=== PATIENT | female | born 1995 | race Asian ===

== ENCOUNTER 2019-04-18 01:08 | Inpatient (IN) | payer OTHER ==
--- NOTE | 2019-04-18 01:15 | ED ---
Substance Abuse/Use - HPI Summary HPI Summary: LEVEL 5 CAVEAT: HPI UNOBTAINABLE DUE TO PATIENT UNRESPONSIVE. This patient is a 24 year old female presenting to [facility] with a chief complaint of unresponsiveness secondary to ETOH intoxication. The patient was brought in by private vehicle on responsive and the friend stated she drank too much too fast. - History Of Current Complaint Stated Complaint: ETOH PER FRIEND Hx Obtained From: Other: - Friend Hx From Patient Unobtainable Due To: Altered Mental Status - Allergies/Home Medications Allergies/Adverse Reactions: Allergies Allergy/AdvReac Type Severity Reaction Status Date / Time Unable to Assess Allergy Verified 04/18/19 01:20 Home Medications: Home Medications NK [No Home Medications Reported] 04/18/19 [History Confirmed 04/18/19] PMH/Surg Hx/FS Hx/Imm Hx - Additional Comments History Additional Comments: LEVEL 5 CAVEAT: PMH UNOBTAINABLE DUE TO PATIENT UNRESPONSIVE. Review of Systems - ROS Summary Review of Systems Summary: LEVEL 5 CAVEAT: ROS UNOBTAINABLE DUE TO PATIENT UNRESPONSIVE. Neurological: Other - Unresponsive All Other Systems Reviewed And Are Negative: No Physical Exam - Summary Physical Exam Summary: General: Extremely thin FEMALE. Unresponsive. No response to sternal rub. Respirations 10. HR 60 BPM. Unable to assess Neurological or Psych. HEENT: Normocephalic, Atraumatic. Eyes: Conjuctiva normal, Pupils 3mm bilaterally, sluggish. Ears: TMs within normal limits. Nares: (-) discharge, (-) erythema. Oropharynx: Clear, mucous membranes moist, (-) exudates. Neck: Soft, FROM, (-) lymphadenopathy, (-) thyromegaly, (-) JVD. Cardiovascular: Normal sinus rhythm, (-) murmur. Lungs: Clear to auscultation bilaterally (-) wheezes, (-) rales, (-) rhonchi. Abdomen: Soft, non-tender, non-distended, (-) organomegaly, normal bowel sounds. Back: (-) CVA tenderness Extremities: No edema. Skin: Warm, dry, (-) rash. Neuro: Unable to assess Neurological or Psych. Psychiatric: Unable to assess Neurological or Psych. GCS: 5 1 Eye-opening Response 1 Verbal Response 3 Motor Response Triage Information Reviewed: Yes Vital Signs On Initial Exam: Temp Pulse Resp BP Pulse Ox 96.1 F 105 12 92/51 98 04/18/19 01:25 04/18/19 01:25 04/18/19 01:25 04/18/19 01:25 04/18/19 01:25 Vital Signs Reviewed: Yes Procedures - Sedation Patient Received Moderate/Deep Sedation with Procedure: No - Intubation Time of Intubation: 01:17 Intubation Method: orotracheal Tube Size (cm): 7.0 Medications: Succinylcholine - 60 mg Breath Sounds after Intubation: equal Intubation Complications: vomited - 2nd attempt successful Post Intubation Xray: Yes Progress/Xray Impression: Good placement noted. Diagnostics - Vital Signs Temp Pulse Resp BP Pulse Ox 96.1 F 105 12 92/51 98 04/18/19 01:25 04/18/19 01:25 04/18/19 01:25 04/18/19 01:25 04/18/19 01:25 - Laboratory Result Diagrams: 04/18/19 01:17 04/18/19 01:17 Lab Statement: Any lab studies that have been ordered have been reviewed, and results considered in the medical decision making process. - Radiology CXR Radiology Interpretation Completed By: ED Physician Summary of Radiographic Findings: AT Tube is acceptable in placement. No signs of infiltrate or fluid. Pending official radiologist report. - EKG 0250 Cardiac Rate: Bradycardia - 47 BPM EKG Rhythm: Sinus Rhythm Summary of EKG Findings: No STEMI. ED Physician has reviewed and interpreted this EKG. Re-Evaluation - Re-Evaluation First Eval Re-Evaluation Time: 02:23 Comment: Increased Propofol to 15 mg. Ativan prn. Course/Dx - Course Course Of Treatment: 24-year-old female presents by private vehicle unresponsive. Patient unresponsive to firm sternal rub. Decreased respirations. GCS 5. Patient intubated with succinylcholine. Started on the ventilator. Patient had vomiting 1 at initial intubation. Zofran and fluids given. Blood alcohol returned 399. Patient was sedated with propofol. Referred to hospitalist for admission. - Diagnoses Provider Diagnoses: Unresponsive episode, Acute alcohol intoxication - Critical Care Time Critical Care Time: 75-104 min - 77 mins Discharge ED - Sign-Out/Discharge Documenting (check all that apply): Patient Departure - Admission - Discharge Plan Condition: Stable Disposition: ADMITTED TO [facility] - Billing Disposition and Condition Condition: STABLE Disposition: Admitted to [facility] - Attestation Statements Document Initiated by Jazmineibyong: Yes Documenting Scribe: Louis Franklin Provider For Whom Barrett is Documenting (Include Credential): Bernie Moran MD Scribe Attestation: Louis Durham, scribed for Bernie Moran MD on 04/18/19 at 0621. Scribe Documentation Reviewed: Yes Provider Attestation: The documentation as recorded by the Louis hernandez accurately reflects the service I personally performed and the decisions made by me, Bernie Moran MD Status of Scribe Document: Viewed
[2019-04-18] MEDS ORDERED: Ondansetron INJ* 2 MG/ML VIAL ONE (01:21)
[2019-04-18] MEDS ORDERED: Succinylcholine* 20 MG/ML 10 ML VIAL ONE (01:24)
[2019-04-18] MEDS ORDERED: Naloxone Nasal Spray* 4 MG/0.1 ML NASAL.SPR INTRANASAL PRN (01:30)
[2019-04-18] MEDS ORDERED: Succinylcholine* 20 MG/ML 10 ML VIAL IV ONE (01:31)
[2019-04-18] MEDS ORDERED: Ondansetron INJ* 2 MG/ML VIAL IV ONE (01:31)
[2019-04-18] MEDS ORDERED: NS 0.9% 1000 ML** 1,000 ML IV ONE ×2 (01:32)
[2019-04-18] MEDS ORDERED: Pantoprazole IV* 40 MG IV ONE (01:32)
[2019-04-18] MEDS ORDERED: Propofol* 100 ML IV ONE ×2 (01:37→01:46)
[2019-04-18 01:43] LABS: ABS Basophils 0.1 10^3/ul (0-0.2); ABS Eosinophils 0.1 10^3/ul (0-0.6); ABS Monocytes 0.4 10^3/ul (0-0.8); ABS Neutrophils 3.7 10^3/ul (1.5-7.7); Eosinophil % 0.8 %; Hematocrit 35 % (35-47); Hemoglobin 11.5 g/dL (12.0-16.0); Lymphocyte % 41.4 %; Mean Corpuscular HGB Conc 32 g/dL (31-36); Mean Corpuscular Hemoglobin 27 pg (27-31); Mean Corpuscular Volume 85 fL (80-97); Mean Platelet Volume 7.2 fL (7.4-10.4); Platelet Count 251 10^3/uL (150-450); Red Blood Count 4.19 10^6 /uL (3.70-4.87); Red Cell Distribution Width 15 % (10-15); White Blood Count 7.2 10^3/uL (3.5-10.8)
[2019-04-18 02:02] LABS: ALT 12 U/L (7-52); Albumin 4.2 g/dL (3.2-5.2); Albumin/Globulin Ratio 1.5 (1-3); Alkaline Phosphatase 63 U/L (34-104); BUN/Creatinine Ratio 16.9 (8-20); Blood Urea Nitrogen 11 mg/dL (6-24); CO2 Carbon Dioxide 22 mmol/L (22-32); Chloride 103 mmol/L (101-111); EGFR African American 137.9 (>60); Globulin 2.8 g/dL (2-4); Glucose 124 mg/dL (70-100); Sodium 135 mmol/L (135-145)
[2019-04-18 02:08] LABS: HCG Pregnancy < 0.60 mIU/mL
[2019-04-18 02:17] LABS: Acetaminophen < 15 mcg/mL; Alcohol 399 mg/dL (<10); Salicylate < 2.50 mg/dL (<30)
[2019-04-18 02:31] LABS: TSH (Thyroid Stimulating Horm) 4.59 mcIU/mL (0.34-5.60)
[2019-04-18] MEDS ORDERED: LORazepam INJ* 2 MG/ML 1 ML VIAL IV PUSH ONE (02:31)
[2019-04-18] MEDS ORDERED: Lorazepam PYXIS KEY PRN (02:31)
[2019-04-18 02:55] LABS: AST 20 U/L (13-39); Anion Gap 10 mmol/L (2-11); Potassium 3.4 mmol/L (3.5-5.0)
[2019-04-18 03:16] LABS: Urine Appearance Clear; Urine Bilirubin Negative (Negative); Urine Blood Negative (Negative); Urine Color Straw; Urine Glucose Negative (Negative); Urine Ketones Trace (Negative); Urine Nitrite Negative (Negative); Urine Protein Negative (Negative); Urine Urobilinogen Negative (Negative)
[2019-04-18 03:36] LABS: Urine Benzodiazepine Screen None Detected (None Detect); Urine Opiates Screen None Detected (None Detect)
[2019-04-18] MEDS ORDERED: Thiamine IV 100 MG, Folic Acid IV* 1 MG, Multiple Vitamin IV ADULT* 10 ML in D5NS 0.9% ... IV ONE (04:46)
[2019-04-18] MEDS ORDERED: LORazepam INJ* 2 MG/ML 1 ML VIAL IV PUSH SCH (05:00)
[2019-04-18] MEDS ORDERED: Lactated Ringers 1000 ML Bag* 1,000 ML IV SCH (05:00)
[2019-04-18] MEDS ORDERED: KCL 20 MEQ/100 ML IVPREMIX* 20 MEQ/100 ML BAG IV ONE (05:01)
[2019-04-18] MEDS ORDERED: Propofol* 100 ML IV SCH (06:00)
[2019-04-18 06:45] LABS: ABS Lymphocytes 0.9 10^3/ul (1.0-4.8); ABS Monocytes 0.1 10^3/ul (0-0.8); ABS Neutrophils 5.6 10^3/ul (1.5-7.7); Eosinophil % 0.1 %; Hematocrit 34 % (35-47); Hemoglobin 11.3 g/dL (12.0-16.0); Lymphocyte % 14.1 %; Mean Corpuscular HGB Conc 33 g/dL (31-36); Mean Corpuscular Hemoglobin 28 pg (27-31); Mean Corpuscular Volume 86 fL (80-97); Mean Platelet Volume 7.1 fL (7.4-10.4); Platelet Count 179 10^3/uL (150-450); Red Blood Count 3.99 10^6 /uL (3.70-4.87); Red Cell Distribution Width 15 % (10-15); White Blood Count 6.7 10^3/uL (3.5-10.8)
[2019-04-18 07:00] LABS: Albumin 3.9 g/dL (3.2-5.2); Albumin/Globulin Ratio 1.6 (1-3); Calcium 7.7 mg/dL (8.6-10.3); EGFR African American 170.8 (>60); EGFR Non-African American 141.2 (>60); Globulin 2.4 g/dL (2-4); Indirect Bilirubin 0.2 mg/dL (0.3-1.0); Magnesium 1.7 mg/dL (1.9-2.7); Potassium 4.2 mmol/L (3.5-5.0); Total Bilirubin 0.3 mg/dL (0.2-1.0); Total Protein 6.3 g/dL (6.4-8.9)
--- NOTE | 2019-04-18 08:36 | HP ---
ADMISSION HISTORY AND PHYSICAL: DATE OF ADMISSION: 04/18/19 CHIEF COMPLAINT: Altered mental status. HISTORY OF PRESENT ILLNESS: This patient was intubated and there was no family member and there is no phone number on the chart, so history was obtained by reviewing the ED records. The patient is a 24-year-old female, who arrived via private vehicle highly intoxicated, was not responsible to sternal rub and further history could not be obtained. She was very critical and was seen by the ER physician who immediately intubated her. The patient is a [employer] student. Apparently, initially her friend came with the patient but then now there is no friend at bedside. No further history could be obtained at this point as the patient is intubated. PAST MEDICAL HISTORY: Unable to obtain given the patient is intubated and there is no friend at bedside. ALLERGIES: Unable to get and none documented. FAMILY HISTORY: Unable to obtain. SOCIAL HISTORY: Unable to obtain. REVIEW OF SYSTEMS: Unable to obtain. PHYSICAL EXAMINATION GENERAL: The patient was sedated on propofol, required 2 restrains as she was very agitated at times. VITAL SIGNS: BP was noted to be 106/74, heart rate 66, respiration rate 16, saturating 100% on ventilator with FiO2 of 25% with end-tidal CO2 of 38. BMI was noted to be 15.1 MENTAL STATUS: The patient was sedated, on the vent. HEAD AND NECK: Atraumatic, normocephalic. Bilateral pupils were reactive. Oral mucosa was dry. NECK: Supple. No jugular venous distention. LUNGS: Clear to auscultation bilaterally. No wheezing, rhonchi, or rales. HEART: S1, S2. Regular rate and rhythm. ABDOMEN: Soft, nontender, nondistended. EXTREMITIES: No cyanosis, clubbing, or edema. DIAGNOSTIC STUDIES/LABORATORY DATA: CBC was unremarkable except for some mild anemia with hemoglobin of 11.5. ABG initially showed pH of 7.28, pCO2 of 41, PaO2 of 184, and oxygen saturation of 98.9 on continuous mechanical ventilation. Comprehensive metabolic panel shows low potassium of 3.4, bicarb was noted to be low end of normal at 22, creatinine normal at 0.65, BUN was noted to be 11. Random glucose was noted to be elevated at 124, lactic acid was noted to be 2.9. LFTs unremarkable. Beta hCG was noted to be undetectable. TSH was noted to be normal. Urinalysis shows trace ketones, negative for any leuk esterase or nitrite. There is ascorbic acid present. Toxicology shows serum alcohol level of 399, Tylenol level was undetectable, and salicylate level was undetectable. Urine drug screen was noted to be negative. Portable chest x-ray postintubation shows ET tube to be almost roughly 8 to 9 cm above the ji, but otherwise clear lung price. EKG shows sinus bradycardia at 47 beats per minute. IMPRESSION: This is a 24-year-old female, appears to be anorexic, came in with altered mental status in highly intoxicated state with serum alcohol level of 399. There is no history that could be obtained at this point as none of her friends are no longer anywhere around the bedside, needed to be intubated for airway protection. ASSESSMENT AND PLAN: 1. Alerted mental status secondary to acute intoxication, intubated for airway protection, we will continue with vent management. We will advanced the ET tube another 2 cm as the ET tube was very high on the chest x-ray. We will repeat lactic acid level as this was elevated originally and start the patient on WAM protocol. We will also start the patient on banana bag and IV thiamine. We will attempt weaning once the patient is more arousable and attempt weaning. 2. Alcohol intoxication, questionable if the patient is just on acute alcoholic versus a chronic drinker. Although the AST/ALT ratio does not show any elevation, we will repeat the LFTs for morning lab to see if there is any change. In the meantime, we will start the patient on a WAM protocol, although I suspect this is a one time thing and the patient is not chronically addicted based on her LFTs. 3. Hypokalemia, we will replace potassium via IV. 4. DVT prophylaxis with sequential compression device. 5. Code status: Full code. Given her young age, cannot find any surrogate decision maker at this point. We will try to obtain more information from [employer] in the morning or if the patient is more awake and following commands. [id number]/[facility] #: [id number] [facility]
[2019-04-18] MEDS ORDERED: Thiamine INJ* 100 MG/ML 2 ML VIAL IV SCH (09:00)
[2019-04-18 10:17] VITALS: BP 120/78
--- NOTE | 2019-04-18 14:01 | DS ---
DISCHARGE SUMMARY: DATE OF ADMISSION: 04/18/19 DATE OF DISCHARGE: 04/18/19 HISTORY AND HOSPITAL COURSE: This patient is a 24-year-old [place] female who was admitted from the emergency room last night with acute alcohol intoxication. The patient was intubated and placed on mechanical ventilation with a serum alcohol level of 399. This morning, the patient was awake and wa s extubated without incident. The patient was alert, oriented, and able to ambulate without assistan ce and therefore discharge was considered appropriate. The patient was informed about the diagnosis and the consequences of continued drinking in that fashion. The patient is a [employer] student and ayaz morgan return to her apartment with 2 friends. There are no medications on discharge. FINAL DISCHARGE DIAGNOSIS: Acute alcohol intoxication. [id number]/[facility] #: [id number]
[2019-04-19] MEDS ORDERED: Thiamine IV 100 MG in NS 0.9% 50 ML Q24H IV SCH (09:00)
== END 2019-04-18 10:57 | disposition home or self-care (01) | DRG 897 ==
LOC: EDBD → ED 01:08 → ICU 04:38
PROVIDERS: ADMIT Internal Medicine; ATTEND Internal Medicine Critical Care Medicine
PROC: 0BH17EZ Insertion of Endotracheal Airway into Trachea, Via Natural or Artificial Opening (ICD-10-PCS; principal; 2019-04-18)
PROC: 5A1935Z Respiratory Ventilation, Less than 24 Consecutive Hours (ICD-10-PCS; 2019-04-18)
DX: F10.129 Alcohol abuse with intoxication, unspecified (principal); Y90.8 Blood alcohol level of 240 mg/100 ml or more; E87.6 Hypokalemia; R41.82 Altered mental status, unspecified
CPT/HCPCS: 36415; 71045; 80048; 80053; 80076; 80307; 80320; 80329; 81003; 82803; 83605; 83735; 84443; 84702; 85025; 87641; 93005; 96361; 96374; 96375; 99285; G0480; J0330; J2405; J2704; J3411; J3480